=== PATIENT | male | born 1975 | race Native Hawaiian/Other Pacific Islander ===

== ENCOUNTER 2016-10-27 11:10 | Emergency (ER) | payer OTHER ==
[~2016-10-27] VITALS: Ht 180.3 cm; Wt 86.2 kg
--- NOTE | ~2016-10-27 | EKG ---
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
--- NOTE | ~2016-10-27 | EKG ---
[address] [employer] 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
[2016-10-27 11:50] LABS: ABSOLUTE NEUTROPHILS 8.9 thou/uL (1.4-8.2); BASOPHILS 0.8 % (0.0-2.0); EOSINOPHILS 1.9 % (0.0-3.0); HEMATOCRIT 46.7 % (42.0-52.0); HEMOGLOBIN 16.4 gm/dL (14.0-18.0); LYMPHOCYTES 25.2 % (24.0-44.0); MCH 31.2 pg (26.0-34.0); MCHC 35.1 g/dL (28.0-37.0); MCV 88.7 fL (80.0-100.0); MONOCYTES 7.2 % (1.0-8.0); PLATELET COUNT 244 thou/uL (150-400); POLYS 64.9 % (36.0-66.0); RBC 5.26 mil/uL (4.50-6.00); RDW 13.3 % (10.5-14.5); WBC 13.7 thou/uL (4.0-11.0)
[2016-10-27 11:51] LABS: MANUAL DIFF NO
[2016-10-27 11:57] LABS: ANION GAP 9 mmol/L (7-16); BUN 13 mg/dL (7-18); CALCIUM 9.5 mg/dL (8.5-10.1); CHLORIDE 104 mmol/L (98-107); CO2 26 mmol/L (21-32); GLUCOSE 115 mg/dL (70-99); POTASSIUM 3.9 mmol/L (3.5-5.1); SODIUM 139 mmol/L (136-145)
[2016-10-27 12:05] LABS: TROPONIN-I < 0.04 ng/mL (<0.04-0.07)
[2016-10-27] MEDS ORDERED: PROTONIX40 M1 PO (13:46)
[2016-10-27 14:22] VITALS: BP 132/91
[2016-10-27] MEDS ORDERED: ZYRTEC10 M2 PO (23:21)
[2016-10-27] MEDS ORDERED: CARAFATE 1 GM TA1 G1 PO (23:21)
[2016-10-27] MEDS ORDERED: PEPCID20 MG PO (23:21)
== END 2016-10-27 14:23 | disposition home or self-care (01) ==
LOC: ER 11:10
PROVIDERS: Emergency Medicine
DX: K21.9 Gastro-esophageal reflux disease without esophagitis (principal); I10 Essential (primary) hypertension

== ENCOUNTER 2016-10-27 22:26 | Emergency (ER) | payer OTHER ==
[~2016-10-27] VITALS: Ht 175.3 cm; Wt 87.5 kg
[~2016-10-27 22:26] MED LIST: PROTONIX40 M1 PO
[2016-10-27] MEDS ORDERED: CARAFATE 1 GM TA1 G1 PO (23:21)
[2016-10-27] MEDS ORDERED: ZYRTEC10 M2 PO (23:21)
[2016-10-27] MEDS ORDERED: PEPCID20 MG PO (23:21)
[2016-10-27 23:48] VITALS: BP 135/91
== END 2016-10-27 23:49 | disposition home or self-care (01) ==
LOC: ER 22:26
DX: R12 Heartburn (principal); H69.90 Unspecified Eustachian tube disorder, unspecified ear